=== PATIENT | male | born 1935 | race Caucasian/White ===

== ENCOUNTER 2016-03-21 08:00 | Outpatient (CLI) | payer MEDICARE, MEDICAID ==
[2016-03-21 08:32] LABS: Hemoglobin A1c 5.8 % (4.0-6.0)
[2016-03-21 09:33] LABS: ALT (SGPT) 14 U/L (0-55); AST (SGOT) 15 U/L (5-34); Albumin 4.2 g/dL (3.4-4.8); Alkaline Phosphatase 56 U/L (40-150); Anion Gap 19 mmol/L (10-20); BUN (Urea Nitrogen) 18 mg/dL (8.4-25.7); Bilirubin, Total 0.3 mg/dL (0.2-1.2); Calc. Creatinine Clearance 0 mL/min (70-130); Calcium 9.2 mg/dL (7.8-10.44); Carbon Dioxide 24 mmol/L (23-31); Chloride 99 mmol/L (98-107); Estimated GFR-MDRD 64; Glucose 125 mg/dL (83-110); Potassium 3.4 mmol/L (3.5-5.1); Protein, Total 7.2 g/dL (5.8-8.1); Sodium 139 mmol/L (136-145)
== END 2016-03-21 08:01 ==
LOC: MADLABBHPM 08:00
PROVIDERS: ATTEND Family Medicine
DX: E11.9 Type 2 diabetes mellitus without complications (principal)
CPT/HCPCS: 36415; 80053; 83036

== ENCOUNTER 2016-04-06 20:25 | Emergency (ER) | payer MEDICARE, MEDICAID ==
[~2016-04-06 20:25] MED LIST: Sodium Chloride 0.9% 500 ML BAG ONE
[2016-04-06 21:31] LABS: Bilirubin Negative (Negative); Blood, Urine Trace (Negative); Clarity Clear (Clear); Glucose, Urine (Dipstick) 250 mg/dL (Negative); Leukocyte Negative (Negative); Nitrite Negative (Negative); Protein, Urine (Dipstick) 30 mg/dL (Neg-Trace); Urobilinogen 0.2 mg/dL (0.2-1.0)
[2016-04-06 21:35] LABS: #Basophils 0.1 thou/uL (0.0-0.2); #Eosinphils 0.2 thou/uL (0.0-0.7); #Lymphocytes 1.7 thou/uL (1.20-3.40); #Monocytes 0.6 thou/uL (0.11-0.59); #Neutrophils 4.3 thou/uL (1.40-6.50); %Basophils 1.2 % (0.0-1.0); %Eosinophils 3.1 % (0.0-10.0); %Lymphocytes 24.7 % (21.0-51.0); %Monocytes 8.4 % (0.0-10.0); %Neutrophils 62.6 % (42.0-75.0); Bacteria/HPF Rare-Few HPF (None Seen); Hemoglobin 11.2 g/dL (14.0-18.0); Mean Corpuscular HGB CONC 31.4 g/dL (32.0-36.0); Mean Corpuscular Hemoglobin 23.4 pg (27.0-31.0); Mean Corpuscular Volume 74.4 fl (80.0-94.0); Mean Platelet Volume 6.1 fL (7.4-10.4); Platelet Count 367 thou/uL (130-400); RBC Distribution Width 18.2 % (11.5-14.5); Red Blood Cell (RBC) Count 4.79 mill/uL (4.70-6.10); WBC/HPF 0-3 HPF (0-3); White Blood Cell (WBC) Count 6.8 thou/uL (4.8-10.8)
[2016-04-06 21:36] LABS: Anisocytosis MARKED = >30 cells (100X) (0-5/hpf); Microcytosis MARKED = >30 cells (100X) (0-5/hpf)
[2016-04-06 21:43] LABS: ALT (SGPT) 14 U/L (0-55); AST (SGOT) 14 U/L (5-34); Albumin 4.2 g/dL (3.4-4.8); Alkaline Phosphatase 63 U/L (40-150); Anion Gap 20 mmol/L (10-20); BUN (Urea Nitrogen) 14 mg/dL (8.4-25.7); Bilirubin, Total 0.3 mg/dL (0.2-1.2); Calc. Creatinine Clearance 0 mL/min (70-130); Calcium 8.9 mg/dL (7.8-10.44); Carbon Dioxide 22 mmol/L (23-31); Chloride 100 mmol/L (98-107); Estimated GFR-MDRD 67; Globulin 3.4 g/dL (2.4-3.5); Glucose 232 mg/dL (83-110); Potassium 3.4 mmol/L (3.5-5.1); Protein, Total 7.6 g/dL (5.8-8.1); Sodium 139 mmol/L (136-145)
[2016-04-06] MEDS ORDERED: Potassium Chloride 20 MEQ TAB ONE (22:01)
--- NOTE | 2016-04-06 22:51 | ERRECORD ---
[facility] EMERGENCY RECORD HPI HYPERTENSION CHIEF COMPLAINT: Patient presents for evaluation of high blood pressure. (21:00 LHOD) HISTORIAN: History provided by patient, History provided by patient's family. (21:00 LHOD) TIME COURSE: 2 WEEKS AGO PT HAD BP IN 80'S SO WAS TAKEN OFF ALL BP MEDS AND TAKEN OFF INSULIN AND METFORMIN. FRIDAY PT SAW AND NOTED BP 140, SO ADVISED RECHECK IN APRIL. FAMILY REPORTS BP 240/100 TONIGHT SO THEY HAD HIM TAKE VALSARTAN 160 MG 30- 45 MINUTES AGO. PT REPORTS HIS GLUCOSE TODAY WAS 180. PT TOOK METFORMIN 3-4 DAYS AGO SINCE HE FELT HE SHOULD. NO HEADACHE, CHEST PAIN OR WEAKNESS. (21:00 LHOD) ASSOCIATED WITH: No associated abdominal pain, No associated chest pain, No associated diarrhea, No associated flank pain, No associated headache, No associated nausea, No associated neck pain, No associated palpitations, No associated tachycardia, Associated with visual changes, No associated vomiting, REPORTS VISION SEEMED BLURRY EARLIER. (22:37 LHOD) EXACERBATED BY: Patient's condition exacerbated by change in medication, Patient's condition exacerbated by PT HAS NOT BEEN ON DIABETIC DIET, TAKEN OFF BP MEDS, INSULIN AND METFORMIN. (22:38 LHOD) RELIEVED BY: Patient's condition relieved by VALSARTAN TAKEN TONIGHT, SEEMED TO HELP PT THOUGHT. (22:38 LHOD) RISK FACTORS: Coronary artery disease risk factors, include known coronary artery disease, include diabetes. (22:39 LHOD) ROS (21:05 LHOD) CONSTITUTIONAL: Historian denies fever. EYES: Historian reports vision changes, REPORTS VISION SEEMED BLURRY EARLIER. CARDIOVASCULAR: Historian denies chest pain, denies edema. RESPIRATORY: Historian denies cough, denies shortness of breath. GI: Historian denies abdominal pain, denies nausea, denies vomiting. FAMILY THINKS ABDOMEN SWELLING, BUT PT DENIES PAIN. GENITOURINARY MALE: Historian denies dysuria. MUSCULOSKELETAL: Historian denies back pain, denies neck pain. REPORTS LEFT HIP STRAIN. SKIN: Historian denies rash. NEUROLOGIC: Historian denies dizziness, denies focal weakness, denies headache. HEMO/LYMPHATIC: Historian denies easy bruising. NOTES: All systems reviewed, negative except as described above. PAST MEDICAL HISTORY MEDICAL HISTORY: Notes: STOMACH ULCERS, Flu vaccine up to date, Tetanus immunization up to date, Pneumococcal vaccine up to date, Past medical history includes history of diabetes, Type II, Past medical history includes history of hyperlipidemia, high cholesterol, Past medical history includes history of hypertension, &a-1R&a+25V*p+0X*[id number]*c202B*c15G*c2P*p-0X&a-25V&a+1R Name: Cesar Gonzalez : 1935 M80 MedRec: [id number] AcctNum: [id number] Prepared: Sat Apr 06, 2016 23:03 by Interface Page 1 of 4 pMD [facility] EMERGENCY RECORD which has been treated, Past medical history includes pulmonary disease, chronic obstructive pulmonary disease. (20:35 MDEB) MALE SURGICAL HISTORY: BACK SURGERY GLAND REMOVE ON LAST FRIDAY, Surgical history of appendectomy. (20:35 MDEB) PSYCHIATRIC HISTORY: Notes: NONE. (20:35 MDEB) SOCIAL HISTORY: Patient currently uses tobacco, Chews tobacco, Patient smokes 1 pack per day, Patient has smoked for 30 years, Patient denies alcohol use, Patient denies drug use. (20:35 MDEB) NOTES: Nursing records reviewed. (20:38 LHOD) KNOWN ALLERGIES cinnamon: Reaction: Anaphylaxis Cipro tablet ciprofloxacin (Unconfirmed): Reaction: Rash ciprofloxacin HCl (Unconfirmed) Levaquin NSAIDS (Non-Steroidal Anti-Inflammatory Drug): - PRESENCE OF STOMACH ULCERS RECENT Penicillins tetanus toxoid, adsorbed (Unconfirmed): Reaction: SWELLING Tetanus Vaccines & Toxoid CURRENT MEDICATIONS (21:00 JDEA) valsartan-hydrochlorothiazide: TABLET : Strength - 160 mg-25 mg : ORAL Patient Dose: 1 tab(s) Oral once a day. VITAL SIGNS VITAL SIGNS: BP: 212/81, Pulse: 77, Resp: 20, Temp: 97.7 (Tympanic), Pain: 0, O2 sat: 100, Time: 04/06/2016 20:33. (20:33 MDEB) BP: 169/69, Pulse: 69, Resp: 20, Pain: 0, O2 sat: 99 on RA, Time: 04/06/2016 22:40. (22:40 MDEB) BP: 188/74, Pulse: 82, Resp: 18, O2 sat: 98 on Room Air, Time: 04/06/2016 20:45. (20:45 MDEB) BP: 179/81, Pulse: 81, Resp: 18, Pain: 0, O2 sat: 98, Time: 04/06/2016 21:15. (21:15 MDEB) BP: 177/64, Pulse: 76, Resp: 18, O2 sat: 98 on Room Air, Time: 04/06/2016 21:45. (21:45 MDEB) PHYSICAL EXAM (21:11 LHOD) CONSTITUTIONAL: Vital signs reviewed, Patient afebrile, Pulse normal, Blood pressure, hypertensive, Respiratory rate normal, Patient appears non toxic, Patient appears pain free, Patient alert and oriented to person, place and time. EYES: Pupils equally round and reactive to light, Extraocular muscles intact. ENT: Mouth exam included findings of, mucous membranes dry. &a-1R&a+25V*p+0X*[id number]*c202B*c15G*c2P*p-0X&a-25V&a+1R Name: Cesar Gonzalez : 1935 M80 MedRec: [id number] AcctNum: [id number] Prepared: Sat Apr 06, 2016 23:03 by Interface Page 2 of 4 pMD [facility] EMERGENCY RECORD NECK: Neck exam included findings of normal range of motion, Trachea midline. RESPIRATORY CHEST: Respiratory exam included findings of no respiratory distress, Breath sounds clear. CARDIOVASCULAR: Cardiovascular exam included findings of heart rate regular rate and rhythm, Heart sounds with, systolic murmur present, grade 2/6. ABDOMEN MALE: Abdominal exam included findings of abdomen nontender. BACK: Back exam normal. UPPER EXTREMITY: Upper extremity exam normal. LOWER EXTREMITY: Lower extremity exam normal. NEURO: Neuro exam findings include patient oriented to person, place and time, Speech normal, Memory normal, Cranial nerves intact, no focal motor deficits, no focal sensory deficits. SKIN: no rash. EKG INTERPRETATION (21:23 LHOD) 12 LEAD EKG INTERPRETATION: 12 lead EKG interpreted by Emergency Department Physician at time of study, 12 lead EKG shows normal sinus rhythm, Rate (beats per minute): 78, with no ectopics, T waves, flattened, Leads affected: I, Leads affected: aVl, [place] normal. MEDICATION ADMINISTRATION SUMMARY Drug Name: *Normal Saline, Dose Ordered: 500 mL, Route: IV Fluid Infusion, Status: Given, Time: 22:05 04/06/2016, Drug Name: potassium chloride oral, Dose Ordered: 20 mEq, Route: Oral, Status: Given, Time: 22:02 04/06/2016, Drug Name: Normal Saline, Dose Ordered: 150 mL/hr, Route: IV Fluid Infusion, Status: Given, Time: 21:10 04/06/2016, *Additional information available in notes, Detailed record available in Medication Service section. DOCTOR NOTES (:23 LHOD) TEXT: 2122--179/2142--177/64 FAMILY REPORTS PT IS SCHEDULED FOR CARDIAC NUCLEAR STRESS TEST ON FRIDAY. PT NOT GIVEN INSULIN SINCE POTASSIUM LOW. ADVISED TO RESTART DIABETIC DIET AT THE VERY LEAST. PROBLEM LIST No recorded problems DIAGNOSIS (:58 LHOD) FINAL: PRIMARY: HYPERTENSION---UNCONTROLLED, ADDITIONAL: HYPERGLYCEMIA---UNCONTROLLED DM, Hypokalemia. PRESCRIPTION (:58 LHOD) &a-1R&a+25V*p+0X*[id number]*c202B*c15G*c2P*p-0X&a-25V&a+1R Name: Cesar Gonzalez : 1935 M80 MedRec: [id number] AcctNum: [id number] Prepared: Sat Apr 06, 2016 23:03 by Interface Page 3 of 4 pMD [facility] EMERGENCY RECORD [place]: TABLET, EXT RELEASE, PARTICLES/CRYSTALS : 20 mEq : ORAL : Quantity: 1 Unit: tab(s) Route: ORAL Schedule: once a day (in the morning) Dispense: 10 May substitute. Refills: No Refills . NOTES: No Refills. DISPOSITION PATIENT: Disposition Type: Discharge, Disposition: *Discharge Home, Condition: Good. (:58 LHOD) Patient left the department. (22:57 MDEB) [place]: JEANA=KEVIN Erazo, Faye LHOD=MD Seema, Kelly MDEB=KEVIN Rogers, Naila &a-1R&a+25V*p+0X*[id number]*c202B*c15G*c2P*p-0X&a-25V&a+1R Name: Cesar Gonzalez : 1935 M80 MedRec: [id number] AcctNum: [id number] Prepared: Jose Alejandro Apr 06, 2016 23:03 by Interface Page 4 of 4 pMD MTDD
--- NOTE | 2016-04-06 22:51 | PICIS ---
[facility] EMERGENCY RECORD TRIAGE (20:35 MDEB) PATIENT: NAME: Ceasr Gonzalez, AGE: 80, GENDER: male, : Fri1935, TIME OF GREET: Sat Apr 06, 2016 20:26, PREFERRED LANGUAGE: Ukrainian, RACE: WHITE, ETHNICITY: Not or , FALL RISK: NO, ECODE BILLING MAP: [facility], SSN: [id number], Zip Code: [facility], KG WEIGHT: 91.17, PHONE: , , , PERSON ID: [id number], PCP: MD DOUG, RANJANA. (20:35 MDEB) TRIAGE NOTES: ELEVATED BP. (20:35 MDEB) COMPLAINT: HIGH BLOOD PRESSURE. (20:35 MDEB) ADMISSION: URGENCY: 3 Urgent, ADMISSION SOURCE: Home, TRANSPORT: Walk-in, BED: TRIAGE. (20:35 MDEB) ASSESSMENT: Assessment: ELEVATED BP - TOOK VALSARTAN 160/25 AT 2009. (20:35 MDEB) PAIN: Notes: NO PAIN AT THIS TIME. (20:35 MDEB) TRIAGE SCREENING: Patient denies suicidal ideation, Patient denies presence of domestic violence. (20:35 MDEB) PROVIDERS: TRIAGE NURSE: Naila Rogers RN. (20:35 MDEB) VITAL SIGNS: BP 212/81, Pulse 77, Resp 20, Temp 97.7, (Tympanic), Pain 0, O2 Sat 100, Time 04/06/2016 20:33. (20:33 MDEB) PREVIOUS VISIT ALLERGIES: cinnamon, Cipro tablet, Levaquin, NSAIDS (Non-Steroidal Anti-Inflammatory Drug), Penicillins, Tetanus Vaccines . (20:35 MDEB) KNOWN ALLERGIES cinnamon: Reaction: Anaphylaxis Cipro tablet ciprofloxacin (Unconfirmed): Reaction: Rash ciprofloxacin HCl (Unconfirmed) Levaquin NSAIDS (Non-Steroidal Anti-Inflammatory Drug): - PRESENCE OF STOMACH ULCERS RECENT Penicillins tetanus toxoid, adsorbed (Unconfirmed): Reaction: SWELLING Tetanus Vaccines & Toxoid CURRENT MEDICATIONS (21:00 JDEA) valsartan-hydrochlorothiazide: TABLET : Strength - 160 mg-25 mg : ORAL Patient Dose: 1 tab(s) Oral once a day. VITAL SIGNS VITAL SIGNS: BP: 212/81, Pulse: 77, Resp: 20, Temp: 97.7 (Tympanic), Pain: 0, O2 sat: 100, Time: 04/06/2016 20:33. (20:33 MDEB) BP: 169/69, Pulse: 69, Resp: 20, Pain: 0, O2 sat: 99 on RA, Time: 04/06/2016 22:40. (22:40 MDEB) BP: 188/74, Pulse: 82, Resp: 18, O2 sat: 98 on Room Air, Time: 04/06/2016 20:45. (20:45 MDEB) BP: 179/81, Pulse: 81, Resp: 18, Pain: 0, O2 sat: 98, Time: 04/06/2016 21:15. (21:15 MDEB) &a-1R&a+25V*p+0X*e2585Q*c202B*c15G*c2P*p-0X&a-25V&a+1R Name: Cesar Gonzalez : 1935 M80 MedRec: [id number] AcctNum: [id number] Prepared: Sat Apr 06, 2016 23:09 by Interface Page 1 of 11 pMD [facility] EMERGENCY RECORD BP: 177/64, Pulse: 76, Resp: 18, O2 sat: 98 on Room Air, Time: 04/06/2016 21:45. (21:45 MDEB) NURSING ASSESSMENT: CARDIOVASCULAR (20:35 MDEB) CONSTITUTIONAL: Patient arrives ambulatory, Gait steady, History obtained from patient, Patient appears comfortable, Patient cooperative, Patient alert, Oriented to person, place and time, Skin warm, Skin dry, Skin normal in color, Mucous membranes pink, Mucous membranes moist, Patient is well-groomed, Patient complains of ELEVATED BP, SLIGHT BLURRED VISION THAT HAS CLEARED NOW. ALL MEDICATIONS STOPPED BY PCP 2 WKS AGO. PAIN: Patient rates pain as 0 out of 10. CARDIOVASCULAR: Cardiovascular assessment findings include heart rate normal. RESPIRATORY/CHEST: Respiratory assessment findings include respiratory effort easy, Respirations regular, Conversing normally, Neck and chest exam findings include trachea midline, Chest expansion equal, Chest movement symmetrical. NOTES: Emotional support needed and given, Patient tolerated procedure well. NURSING PROCEDURE: DISCHARGE NOTE (22:40 MDELIZ) DISCHARGE: Patient discharged to home, ambulating without assistance, family driving, accompanied by other family member, Summary of Care printed/ provided, Patient requested and was provided an electronic copy of Discharge Instructions, Transition record given to patient, Discharge instructions given to patient, Discharge instructions given to DAUGHTER, Simple or moderate discharge teaching performed, MONITORING BP & BG, Prescriptions given and instructions on side effects given, Above person(s) verbalized understanding of discharge instructions and follow-up care, Patient treated and evaluated by physician. BELONGINGS: Belongings remain with patient, Valuables remain with patient. NOTES: Emotional support needed and given, Patient tolerated procedure well. SAFETY: Side rails up, Cart/Stretcher in lowest position, Family at bedside, Call light within reach, Hospital ID band on. VITAL SIGNS: BP: 169, / 69, Pulse: 69, Resp: 20, Pain: 0, O2 sat: 99, on: RA. NURSING PROCEDURE: EKG CHART (21:00 AGAN) PATIENT IDENTIFIER: Patient actively involved in identification process, Patient's identity verified by patient stating name, Patient's identity verified by patient stating date, Patient's identity verified by hospital ID bracelet. EKG: EKG indicated for High BP, 12 lead EKG performed on the left chest. FOLLOW-UP: After procedure, EKG for interpretation given to Dr. Stephenson. &a-1R&a+25V*p+0X*x5724C*c202B*c15G*c2P*p-0X&a-25V&a+1R Name: Cesar Gonzalez : 1935 M80 MedRec: [id number] AcctNum: [id number] Prepared: Sat Apr 06, 2016 23:09 by Interface Page 2 of 11 D [facility] EMERGENCY RECORD NOTES: Patient tolerated procedure well. NURSING PROCEDURE: IV PATIENT IDENITIFIER: Patient actively involved in identification process, Patient's identity verified by patient stating name, Patient's identity verified by hospital ID bracelet. (20:40 MDELIZ) Patient actively involved in identification process, Patient's identity verified by patient stating name, Patient's identity verified by hospital ID bracelet. (22:40 MDEB) IV SITE 1: IV therapy indicated for hydration, IV therapy indicated for medication administration, IV established, to the right antecubital, using an 18 gauge catheter, in one attempt, IV site prepped with ALCOHOL, Saline lock established, Flushed with normal saline (mls): 10, Labs drawn at time of placement, labeled in the presence of the patient and sent to lab. (20:40 MDEB) FOLLOW-UP SITE 1: After procedure, sterile transparent dressing applied. (20:40 MDEB) IV discontinued, due to patient being discharged, catheter intact. (22:40 MDEB) NOTES: Emotional support needed and given, Patient tolerated procedure well. (20:40 MDEB) Emotional support needed and given, Patient tolerated procedure well. (22:40 MDEB) SAFETY: Side rails up, Cart/Stretcher in lowest position, Family at bedside, Call light within reach, Hospital ID band on. (20:40 MDEB) ORDER DETAILS Order Name: Accucheck, Status: Done, Time: 21:08 04/06/2016, User: ZAC, - Ordered for: MD Stephenson Lefayne, - Entered by: MD Stephenson Lefayne - Sat Apr 06, 2016 20:47, - Quantity: 1, Order Name: [facility], Status: Done, Time: 21:08 04/06/2016, User: ZAC, - Ordered for: MD Stephenson Lefayne, - Entered by: MD Stephenson Lefayne - Sat Apr 06, 2016 20:46, - Quantity: 1, Order Name: CBC with Differential, Status: Active, Time: 20:46 04/06/2016, User: BONITA, - Ordered for: MD Stephenson Lefayne, - Entered by: MD Stephenson Lefayne - Sat Apr 06, 2016 20:46, - Quantity: 1, Order Name: Comprehensive Metabolic Panel, Status: Active, Time: 20:46 04/06/2016, User: BONITA, - Ordered for: MD Stephenson Lefayne, - Entered by: MD Stephenson Lefayne - Sat Apr 06, 2016 20:46, - Quantity: 1, Order Name: EKG 12 Lead in Emergency Room, Status: Active, Time: &a-1R&a+25V*p+0X*e3706X*c202B*c15G*c2P*p-0X&a-25V&a+1R Name: Cesar Gonzalez : 1935 M80 MedRec: [id number] AcctNum: [id number] Prepared: Sat Apr 06, 2016 23:09 by Interface Page 3 of 11 pMD [facility] EMERGENCY RECORD 20:46 04/06/2016, User: BONITA, - Ordered for: MD Stephenson Lefayne, - Entered by: MD Stephenson Lefayne - Jose Alejandro Apr 06, 2016 20:46, - Quantity: 1, Order Name: SALINE LOCK, Status: Done, Time: 21:08 04/06/2016, User: ZAC, - Ordered for: MD Stephenson Lefayne, - Entered by: MD Stephenson Lefayne - Jose Alejandro Apr 06, 2016 20:46, - Quantity: 1, Order Name: Urinalysis w/ Rflx Microscopic, Status: Active, Time: 20:47 04/06/2016, User: BONITA, - Ordered for: MD Stephenson Lefayne, - Entered by: MD Stephenson Lefayne - Jose Alejandro Apr 06, 2016 20:47, - Quantity: 1. MEDICATION ADMINISTRATION SUMMARY Drug Name: *Normal Saline, Dose Ordered: 500 mL, Route: IV Fluid Infusion, Status: Given, Time: 22:05 04/06/2016, Drug Name: potassium chloride oral, Dose Ordered: 20 mEq, Route: Oral, Status: Given, Time: 22:02 04/06/2016, Drug Name: Normal Saline, Dose Ordered: 150 mL/hr, Route: IV Fluid Infusion, Status: Given, Time: 21:10 04/06/2016, *Additional information available in notes, Detailed record available in Medication Service section. MEDICATION SERVICE Normal Saline: Order: Normal Saline (0.9 % sodium chloride) - Dose: 150 mL/hr : IV Fluid Infusion Ordered by: Kelly Stephenson MD Entered by: Kelly Stephenson MD Sat Apr 06, 2016 21:08 Documented as given by: Naila Rogers RN Sat Apr 06, 2016 21:10 Patient, Medication, Dose, Route and Time verified prior to administration. Amount given: 150 ML/HR, IV SITE #1 IV fluids established for hydration, IV SITE #1 1st bag hung, IV SITE #1 Rate of infusion (non-bolus) Infusing at 150 ml/hr, via primary tubing, IV SITE #1 on IV pump, Catheter placement confirmed via flush prior to administration, IV site without signs or symptoms of infiltration during medication administration, No swelling during administration, No drainage during administration, IV flushed after administration, Correct patient, time, route, dose and medication confirmed prior to administration, Patient advised of actions and side-effects prior to administration, Allergies confirmed and medications reviewed prior to administration, Patient in position of comfort, Side rails up, Cart in lowest position, Family at bedside. Normal Saline: Order: Normal Saline (0.9 % sodium chloride) - Dose: 500 mL : IV Fluid Infusion Notes: BOLUS, THEN D/C IV Ordered by: Kelly Stephenson MD &a-1R&a+25V*p+0X*b5415U*c202B*c15G*c2P*p-0X&a-25V&a+1R Name: Cesar Gonzalez : 1935 M80 MedRec: [id number] AcctNum: [id number] Prepared: Sat Apr 06, 2016 23:09 by Interface Page 4 of 11 pMD [facility] EMERGENCY RECORD Entered by: Kelly Stephenson MD Sat Apr 06, 2016 21:57 , Acknowledged by: Naila Rogers RN Sat Apr 06, 2016 22:00 Documented as given by: Naila Rogers RN Sat Apr 06, 2016 22:05 Patient, Medication, Dose, Route and Time verified prior to administration. Amount given: 500 ML, IV SITE #1 IV fluids established for hydration, IV SITE #1 into right antecubital, IV SITE #1 1st bag hung, IV SITE #1 bolus of 500 ml established, IV SITE #1 Rate of bolus, 1000 ml/hr, via primary tubing, IV SITE #1 on IV pump, Catheter placement confirmed via flush prior to administration, IV site without signs or symptoms of infiltration during medication administration, No swelling during administration, No drainage during administration, IV flushed after administration, Correct patient, time, route, dose and medication confirmed prior to administration, Patient advised of actions and side-effects prior to administration, Allergies confirmed and medications reviewed prior to administration, Patient in position of comfort, Side rails up, Cart in lowest position, Family at bedside. potassium chloride oral: Order: potassium chloride oral (potassium chloride) - Dose: 20 mEq : Oral Ordered by: Kelly Stephenson MD Entered by: Kelly Stephenson MD Sat Apr 06, 2016 21:56 , Acknowledged by: Naila Rogers RN Sat Apr 06, 2016 22:00 Documented as given by: Naila Rogers RN Sat Apr 06, 2016 22:02 Patient, Medication, Dose, Route and Time verified prior to administration. Amount given: 20 MEQ, Site: Medication administered P.O., Correct patient, time, route, dose and medication confirmed prior to administration, Patient advised of actions and side-effects prior to administration, Allergies confirmed and medications reviewed prior to administration, Patient in position of comfort, Side rails up, Cart in lowest position, Family at bedside. HPI HYPERTENSION CHIEF COMPLAINT: Patient presents for evaluation of high blood pressure. (21:00 LHOD) HISTORIAN: History provided by patient, History provided by patient's family. (21:00 LHOD) TIME COURSE: 2 WEEKS AGO PT HAD BP IN 80'S SO WAS TAKEN OFF ALL BP MEDS AND TAKEN OFF INSULIN AND METFORMIN. FRIDAY PT SAW AND NOTED BP 140, SO ADVISED RECHECK IN APRIL. FAMILY REPORTS BP 240/100 TONIGHT SO THEY HAD HIM TAKE VALSARTAN 160 MG 30- 45 MINUTES AGO. PT REPORTS HIS GLUCOSE TODAY WAS 180. PT TOOK METFORMIN 3-4 DAYS AGO SINCE HE FELT HE SHOULD. NO HEADACHE, CHEST PAIN OR WEAKNESS. (21:00 LHOD) ASSOCIATED WITH: No associated abdominal pain, No associated chest pain, No associated diarrhea, No associated flank pain, No associated headache, No associated nausea, No associated neck pain, No associated palpitations, No associated tachycardia, Associated with visual changes, No associated vomiting, REPORTS VISION SEEMED BLURRY EARLIER. (22:37 LHOD) EXACERBATED BY: &a-1R&a+25V*p+0X*s3380G*c202B*c15G*c2P*p-0X&a-25V&a+1R Name: Cesar Gonzalez : 1935 M80 MedRec: [id number] AcctNum: [id number] Prepared: Sat Apr 06, 2016 23:09 by Interface Page 5 of 11 pMD [facility] EMERGENCY RECORD Patient's condition exacerbated by change in medication, Patient's condition exacerbated by PT HAS NOT BEEN ON DIABETIC DIET, TAKEN OFF BP MEDS, INSULIN AND METFORMIN. (22:38 LHOD) RELIEVED BY: Patient's condition relieved by VALSARTAN TAKEN TONIGHT, SEEMED TO HELP PT THOUGHT. (22:38 LHOD) RISK FACTORS: Coronary artery disease risk factors, include known coronary artery disease, include diabetes. (22:39 LHOD) ROS (21:05 LHOD) CONSTITUTIONAL: Historian denies fever. EYES: Historian reports vision changes, REPORTS VISION SEEMED BLURRY EARLIER. CARDIOVASCULAR: Historian denies chest pain, denies edema. RESPIRATORY: Historian denies cough, denies shortness of breath. GI: Historian denies abdominal pain, denies nausea, denies vomiting. FAMILY THINKS ABDOMEN SWELLING, BUT PT DENIES PAIN. GENITOURINARY MALE: Historian denies dysuria. MUSCULOSKELETAL: Historian denies back pain, denies neck pain. REPORTS LEFT HIP STRAIN. SKIN: Historian denies rash. NEUROLOGIC: Historian denies dizziness, denies focal weakness, denies headache. HEMO/LYMPHATIC: Historian denies easy bruising. NOTES: All systems reviewed, negative except as described above. PAST MEDICAL HISTORY MEDICAL HISTORY: Notes: STOMACH ULCERS, Flu vaccine up to date, Tetanus immunization up to date, Pneumococcal vaccine up to date, Past medical history includes history of diabetes, Type II, Past medical history includes history of hyperlipidemia, high cholesterol, Past medical history includes history of hypertension, which has been treated, Past medical history includes pulmonary disease, chronic obstructive pulmonary disease. (20:35 MDEB) MALE SURGICAL HISTORY: BACK SURGERY GLAND REMOVE ON LAST FRIDAY, Surgical history of appendectomy. (20:35 MDEB) PSYCHIATRIC HISTORY: Notes: NONE. (20:35 MDEB) SOCIAL HISTORY: Patient currently uses tobacco, Chews tobacco, Patient smokes 1 pack per day, Patient has smoked for 30 years, Patient denies alcohol use, Patient denies drug use. (20:35 MDEB) NOTES: Nursing records reviewed. (20:38 LHOD) PHYSICAL EXAM (21:11 LHOD) CONSTITUTIONAL: Vital signs reviewed, Patient afebrile, Pulse normal, Blood pressure, hypertensive, Respiratory rate normal, Patient appears non toxic, Patient appears pain free, Patient alert and oriented to person, place and time. &a-1R&a+25V*p+0X*u9201E*c202B*c15G*c2P*p-0X&a-25V&a+1R Name: Cesar Gonzalez : 1935 M80 MedRec: [id number] AcctNum: [id number] Prepared: Sat Apr 06, 2016 23:09 by Interface Page 6 of 11 pMD [facility] EMERGENCY RECORD EYES: Pupils equally round and reactive to light, Extraocular muscles intact. ENT: Mouth exam included findings of, mucous membranes dry. NECK: Neck exam included findings of normal range of motion, Trachea midline. RESPIRATORY CHEST: Respiratory exam included findings of no respiratory distress, Breath sounds clear. CARDIOVASCULAR: Cardiovascular exam included findings of heart rate regular rate and rhythm, Heart sounds with, systolic murmur present, grade 2/6. ABDOMEN MALE: Abdominal exam included findings of abdomen nontender. BACK: Back exam normal. UPPER EXTREMITY: Upper extremity exam normal. LOWER EXTREMITY: Lower extremity exam normal. NEURO: Neuro exam findings include patient oriented to person, place and time, Speech normal, Memory normal, Cranial nerves intact, no focal motor deficits, no focal sensory deficits. SKIN: no rash. LAB INTERPRETATION (21:40 LHOD) INTERPRETATION: I reviewed the lab results, CBC abnormal, Hemoglobin decreased, Hematocrit decreased, Chemistry abnormal, Potassium decreased, Glucose elevated, Urinalysis abnormal, positive for glucose. EVENTS TRANSFER: Triage to Emergency Triage. (Sat Apr 06, 2016 20:35 MDEB) Emergency Triage to Main ED -03. (20:36 MDEB) Removed from Emergency Main ED -03. (22:57 MDEB) EKG INTERPRETATION (21:23 LHOD) 12 LEAD EKG INTERPRETATION: 12 lead EKG interpreted by Emergency Department Physician at time of study, 12 lead EKG shows normal sinus rhythm, Rate (beats per minute): 78, with no ectopics, T waves, flattened, Leads affected: I, Leads affected: aVl, [place] normal. DOCTOR NOTES (21:23 LHOD) TEXT: 2122--179/67 2142--177/64 FAMILY REPORTS PT IS SCHEDULED FOR CARDIAC NUCLEAR STRESS TEST ON FRIDAY. PT NOT GIVEN INSULIN SINCE POTASSIUM LOW. ADVISED TO RESTART DIABETIC DIET AT THE VERY LEAST. PROBLEM LIST No recorded problems &a-1R&a+25V*p+0X*v4254K*c202B*c15G*c2P*p-0X&a-25V&a+1R Name: Cesar Gonzalez : 1935 M80 MedRec: [id number] AcctNum: [id number] Prepared: Sat Apr 06, 2016 23:09 by Interface Page 7 of 11 pMD [facility] EMERGENCY RECORD DIAGNOSIS (21:58 LHOD) FINAL: PRIMARY: HYPERTENSION---UNCONTROLLED, ADDITIONAL: HYPERGLYCEMIA---UNCONTROLLED DM, Hypokalemia. DISPOSITION PATIENT: Disposition Type: Discharge, Disposition: *Discharge Home, Condition: Good. (21:58 LHOD) Patient left the department. (22:57 MDEB) INSTRUCTION (21:59 LHOD) DISCHARGE: HYPERTENSION, ESTABLISHED, OUT OF CONTROL, DIABETIC DIET, HYPOKALEMIA. FOLLOWUP: MD DOUG, [facility], [facility], [address] [place] [id number], [phone], Follow up with Primary Care Physician in 2-3 days. SPECIAL: Follow-up with your PCP *RETURN IF WORSE CONTINUE VALSARTAN 1 EACH DAY FOR NOW. PRESCRIPTION (21:58 LHOD) K-Dur: TABLET, EXT RELEASE, PARTICLES/CRYSTALS : 20 mEq : ORAL : Quantity: 1 Unit: tab(s) Route: ORAL Schedule: once a day (in the morning) Dispense: 10 May substitute. Refills: No Refills . NOTES: No Refills. IMAGING EKG: Image captured from scanner. (22:42 AGAN) DIS: Image captured from scanner. (22:45 MDEB) *SUPPLY CHARGE SHEET: Image captured from scanner. (22:46 MDEB) ADMIN (22:41 LHOD) DIGITAL SIGNATURE: MD Seema, Kelly. RESULTS LABORATORY: Accuc[place]k Collection DT: Sat Apr 06, 2016 21:13, *Accuc[place]k 212 - H mg/dL, Range (70-110). (21:21 LHOD) Urine Microscopic Collection DT: Sat Apr 06, 2016 21:18, RBC/HPF 4-6 HPF, Range (0-3), WBC/HPF 0-3 HPF, Range (0-3), *Squamous Epithelial 4-6 - H HPF, Range (0-3), Bacteria/HPF Rare-Few HPF, Range (None Seen). (21:40 LHOD) Urinalysis w/ Rflx Microscopic Collection DT: [facility] Apr 06, 2016 21:18, Color Yellow , Range (Yellow), Clarity Clear , Range (Clear), Specific [place], Urine 1.020 , Range (1.005-1.030), pH, Urine 7.0 , Range (5.0-9.0), Leukocyte Negative , Range (Negative), Nitrite Negative , Range (Negative), &a-1R&a+25V*p+0X*n8090T*c202B*c15G*c2P*p-0X&a-25V&a+1R Name: Cesar Gonzalez : 1935 M80 MedRec: [id number] AcctNum: [id number] Prepared: [facility] Apr 06, 2016 23:09 by Interface Page 8 of 11 pMD [facility] EMERGENCY RECORD *Protein, Urine (Dipstick) 30 - H mg/dL, Range (Neg-Trace), *Glucose, Urine (Dipstick) 250 - H mg/dL, Range (Negative), Ketone, Urine Negative mg/dL, Range (Negative), Urobilinogen 0.2 mg/dL, Range (0.2-1.0), Bilirubin Negative , Range (Negative), *Blood, Urine Trace - H , Range (Negative). (21:40 LHOD) CBC with Differential Collection DT: [facility] Apr 06, 2016 21:18, White Blood Cell (WBC) Count 6.8 thou/uL, Range (4.8-10.8), Red Blood Cell (RBC) Count 4.79 mill/uL, Range (4.70-6.10), *Hemoglobin 11.2 - L g/dL, Range (14.0-18.0), *Hematocrit 35.6 - L %, Range (42.0-52.0), *Mean Corpuscular Volume 74.4 - L fl, Range (80.0-94.0), *Mean Corpuscular Hemoglobin 23.4 - L pg, Range (27.0-31.0), *Mean Corpuscular HGB CONC 31.4 - L g/dL, Range (32.0-36.0), *RBC Distribution Width 18.2 - H %, Range (11.5-14.5), Platelet Count 367 thou/uL, Range (130-400), *Mean Platelet Volume 6.1 - L fL, Range (7.4-10.4), %Neutrophils 62.6 %, Range (42.0-75.0), %Lymphocytes 24.7 %, Range (21.0-51.0), %Monocytes 8.4 %, Range (0.0-10.0), %Eosinophils 3.1 %, Range (0.0-10.0), *%Basophils 1.2 - H %, Range (0.0-1.0), #Neutrophils 4.3 thou/uL, Range (1.40-6.50), #Lymphocytes 1.7 thou/uL, Range (1.20-3.40), *#Monocytes 0.6 - H thou/uL, Range (0.11-0.59), #Eosinphils 0.2 thou/uL, Range (0.0-0.7), #Basophils 0.1 thou/uL, Range (0.0-0.2), Anisocytosis MARKED = >30 cells (100X), Range (0-5/hpf), Microcytosis MARKED = >30 cells (100X), Range (0-5/hpf). (21:40 LHOD) Urine Microscopic Collection DT: Sat Apr 06, 2016 21:18, RBC/HPF 4-6 HPF, Range (0-3), WBC/HPF 0-3 HPF, Range (0-3), *Squamous Epithelial 4-6 - H HPF, Range (0-3), Bacteria/HPF Rare-Few HPF, Range (None Seen). (21:40 LHOD) Urinalysis w/ Rflx Microscopic Collection DT: Sat Apr 06, 2016 21:18, Color Yellow , Range (Yellow), Clarity Clear , Range (Clear), Specific [place], Urine 1.020 , Range (1.005-1.030), pH, Urine 7.0 , Range (5.0-9.0), Leukocyte Negative , Range (Negative), Nitrite Negative , Range (Negative), *Protein, Urine (Dipstick) 30 - H mg/dL, Range (Neg-Trace), *Glucose, Urine (Dipstick) 250 - H mg/dL, Range (Negative), Ketone, Urine Negative mg/dL, Range (Negative), Urobilinogen 0.2 mg/dL, Range (0.2-1.0), Bilirubin Negative , Range (Negative), &a-1R&a+25V*p+0X*r6802S*c202B*c15G*c2P*p-0X&a-25V&a+1R Name: Cesar Gonzalez : 1935 M80 MedRec: [id number] AcctNum: [id number] Prepared: Sat Apr 06, 2016 23:09 by Interface Page 9 of 11 pMD [facility] EMERGENCY RECORD *Blood, Urine Trace - H , Range (Negative). (21:40 LHOD) CBC with Differential Collection DT: Sat Apr 06, 2016 21:18, White Blood Cell (WBC) Count 6.8 thou/uL, Range (4.8-10.8), Red Blood Cell (RBC) Count 4.79 mill/uL, Range (4.70-6.10), *Hemoglobin 11.2 - L g/dL, Range (14.0-18.0), *Hematocrit 35.6 - L %, Range (42.0-52.0), *Mean Corpuscular Volume 74.4 - L fl, Range (80.0-94.0), *Mean Corpuscular Hemoglobin 23.4 - L pg, Range (27.0-31.0), *Mean Corpuscular HGB CONC 31.4 - L g/dL, Range (32.0-36.0), *RBC Distribution Width 18.2 - H %, Range (11.5-14.5), Platelet Count 367 thou/uL, Range (130-400), *Mean Platelet Volume 6.1 - L fL, Range (7.4-10.4), %Neutrophils 62.6 %, Range (42.0-75.0), %Lymphocytes 24.7 %, Range (21.0-51.0), %Monocytes 8.4 %, Range (0.0-10.0), %Eosinophils 3.1 %, Range (0.0-10.0), *%Basophils 1.2 - H %, Range (0.0-1.0), #Neutrophils 4.3 thou/uL, Range (1.40-6.50), #Lymphocytes 1.7 thou/uL, Range (1.20-3.40), *#Monocytes 0.6 - H thou/uL, Range (0.11-0.59), #Eosinphils 0.2 thou/uL, Range (0.0-0.7), #Basophils 0.1 thou/uL, Range (0.0-0.2), Anisocytosis MARKED = >30 cells (100X), Range (0-5/hpf), Microcytosis MARKED = >30 cells (100X), Range (0-5/hpf). (21:40 [facility]) Comprehensive Metabolic Panel Collection DT: Sat Apr 06, 2016 21:18, Sodium 139 mmol/L, Range (136-145), *Potassium 3.4 - L mmol/L, Range (3.5-5.1), Chloride 100 mmol/L, Range (98-107), *Carbon Dioxide 22 - L mmol/L, Range (23-31), Anion Gap 20 mmol/L, Range (10-20), BUN (Urea Nitrogen) 14 mg/dL, Range (8.4-25.7), Creatinine 1.07 mg/dL, Range (0.7-1.3), Estimated GFR-MDRD 67 , Reference Range for Estimated GFR: Greater than 90, mL/min/1.73 m2 NOTE: The MDRD equation has not been validated for use, with the elderly (over 70 years of age), women, patients with, serious comorbid condition or persons with extremes of body size, muscle, mass, or nutritional status. , *Glucose 232 - H mg/dL, Range (83-110), Calcium 8.9 mg/dL, Range (7.8-10.44), Bilirubin, Total 0.3 mg/dL, Range (0.2-1.2), Protein, Total 7.6 g/dL, Range (5.8-8.1), NOTE: Plasma values are generally 0.3 to 0.5 g/dL higher than serum values, due to the presence of fibrinogen. , Albumin 4.2 g/dL, Range (3.4-4.8), Globulin 3.4 g/dL, Range (2.4-3.5), &a-1R&a+25V*p+0X*m4387V*c202B*c15G*c2P*p-0X&a-25V&a+1R Name: Cesar Gonzalez : 1935 M80 MedRec: [id number] AcctNum: [id number] Prepared: Sat Apr 06, 2016 23:09 by Interface Page 10 of 11 pMD [facility] EMERGENCY RECORD Alb/Glob Ratio 1.2 g/dL, Range (1.2-2.2), Alkaline Phosphatase 63 U/L, Range (40-150), AST (SGOT) 14 U/L, Range (5-34), ALT (SGPT) 14 U/L, Range (0-55). (21:44 LHOD) [place]: ROSION=KEVIN Garcia, Stephen HILLS=KEVIN Erazo, Faye LHOD=MD Seema, Kelly EARL=KEVIN Rogers, Naila &a-1R&a+25V*p+0X*s1845F*c202B*c15G*c2P*p-0X&a-25V&a+1R Name: Cesar Gonzalez : 1935 M80 MedRec: [id number] AcctNum: [id number] Prepared: Sat Apr 06, 2016 23:09 by Interface Page 11 of 11 pMD MTDD
== END 2016-04-06 22:30 | disposition home or self-care (01) ==
LOC: MADERS 20:25
DX: I10 Essential (primary) hypertension (principal); E11.65 Type 2 diabetes mellitus with hyperglycemia; E87.6 Hypokalemia; E78.00 Pure hypercholesterolemia, unspecified; E78.5 Hyperlipidemia, unspecified; J44.9 Chronic obstructive pulmonary disease, unspecified; F17.220 Nicotine dependence, chewing tobacco, uncomplicated; Z79.899 Other long term (current) drug therapy
CPT/HCPCS: 36416; 80053; 81003; 81015; 85025; 93005; 96360; 36415-59; J7050

== ENCOUNTER 2016-04-07 23:07 | Emergency (ER) | payer MEDICARE, MEDICAID ==
--- NOTE | 2016-04-07 23:47 | ERRECORD ---
[facility] EMERGENCY RECORD HPI GENERAL (23:37 LLDO) CHIEF COMPLAINT: Patient presents for evaluation of pt discovered his bp was essentially normal (for him) and left, saying he would talk to pcp about his meds tomorrow. ROS (23:38 LLDO) CONSTITUTIONAL: pt not seen by me. no ros. NOTES: Systems not reviewed; unable. PAST MEDICAL HISTORY MEDICAL HISTORY: Notes: STOMACH ULCERS, Flu vaccine up to date, Tetanus immunization up to date, Pneumococcal vaccine up to date, Past medical history includes history of diabetes, Type II, Past medical history includes history of hyperlipidemia, high cholesterol, Past medical history includes history of hypertension, which has been treated, Past medical history includes pulmonary disease, chronic obstructive pulmonary disease. NO changes. (23:22 AGAN) MALE SURGICAL HISTORY: BACK SURGERY GLAND REMOVE ON LAST FRIDAY, Surgical history of appendectomy. no changes. (23:22 AGAN) PSYCHIATRIC HISTORY: Notes: NONE., none. (23:22 AGAN) SOCIAL HISTORY: Patient denies alcohol use, Patient denies drug use, Patient has no smoking history, Patient currently uses tobacco, Chews tobacco, Patient smokes 1 pack per day, Patient has smoked for 30 years, Patient denies alcohol use, Patient denies drug use. (23:22 AGAN) NOTES: Nursing records reviewed, Agree with nursing records, Medication list reviewed. (23:39 LLDO) KNOWN ALLERGIES cinnamon (Unconfirmed): Reaction: Anaphylaxis Cipro tablet ciprofloxacin (Unconfirmed): Reaction: Rash ciprofloxacin HCl (Unconfirmed) Levaquin NSAIDS (Non-Steroidal Anti-Inflammatory Drug): - PRESENCE OF STOMACH ULCERS RECENT Penicillins tetanus toxoid, adsorbed (Unconfirmed): Reaction: SWELLING Tetanus Vaccines & Toxoid CURRENT MEDICATIONS (23:19 AGAN) valsartan-hydrochlorothiazide: TABLET : Strength - 160 mg-25 mg : ORAL Patient Dose: 1 tab(s) Oral once a day. K-Dur: TABLET, EXT RELEASE, PARTICLES/CRYSTALS : Strength - 20 mEq : ORAL Patient Dose: 1 tab(s) Oral once a day (in the morning). &a-1R&a+25V*p+0X*d2125U*c202B*c15G*c2P*p-0X&a-25V&a+1R Name: Cesar Gonzalez : 1935 M80 MedRec: [id number] AcctNum: [id number] Prepared: Karli Apr 07, 2016 23:43 by Interface Page 1 of 2 pMD [facility] EMERGENCY RECORD VITAL SIGNS (23:16 AGAN) VITAL SIGNS: BP: 191/66, Pulse: 88, Resp: 18, Pain: 0, O2 sat: 100% on Room Air, Time: 04/07/2016 23:16. PHYSICAL EXAM (23:39 LLDO) CONSTITUTIONAL: no pe done. PROBLEM LIST No recorded problems DIAGNOSIS (23:36 AGAN) FINAL: PRIMARY: erLWBS. PRESCRIPTION No recorded prescriptions DISPOSITION PATIENT: Disposition Type: Eloped, Disposition: Left Without Being Seen, Disposition Transport: Ambulatory, Condition: Good. (23:36 AGAN) Patient left the department. (23:38 AGAN) [place]: AGAGeovany=KEVIN Garcia, Stephen LLDO=MD Emily, John &a-1R&a+25V*p+0X*s8696T*c202B*c15G*c2P*p-0X&a-25V&a+1R Name: Cesar Gonzalez : 1935 M80 MedRec: [id number] AcctNum: [id number] Prepared: Karli Apr 07, 2016 23:43 by Interface Page 2 of 2 pMD MTDD
--- NOTE | 2016-04-07 23:51 | PICIS ---
[facility] EMERGENCY RECORD TRIAGE (FriApr 07, 2016 23:18 AGAN) TRIAGE NOTES: MY BP IS HIH ON MY BLOOD PRESSURE MACHINE AT HOME. (FriApr 07, 2016 23:18 AGAN) PATIENT: NAME: Cesar Gonzalez, AGE: 80, GENDER: male, : Fri1935, TIME OF GREET: FriApr 07, 2016 23:07, PREFERRED LANGUAGE: Algerian, ETHNICITY: Not or , FALL RISK: NO, ECODE BILLING MAP: [facility], SSN: [id number], Zip Code: [address], KG WEIGHT: 89.81, PHONE: , , , PERSON ID: [id number], PCP: MD CAMACHO IMELDA. (FriApr 07, 2016 23:18 AGAN) COMPLAINT: HIGH BLOOD PRESSURE. (FriApr 07, 2016 23:18 AGAN) ADMISSION: URGENCY: 4 Non Urgent, ADMISSION SOURCE: Home, TRANSPORT: CAR, BED: ED -03. ([place] Apr 07, 2016 23:18 AGAN) ASSESSMENT: Assessment: [place]3 was seen here last night for the same concern. My BP is high at home, Symptoms began 2 hours ago. (23:22 AGAN) PAIN: No complaint of pain. (23:22 AGAN) PROVIDERS: TRIAGE NURSE: Stephen Garcia RN. ([place] Apr 07, 2016 23:18 AGAN) VITAL SIGNS: BP 191/66, Pulse 88, Resp 18, Pain 0, O2 Sat 100%, on Room Air, Time 04/07/2016 23:16. (23:16 AGAN) PREVIOUS VISIT ALLERGIES: cinnamon, Cipro tablet, Levaquin, NSAIDS (Non-Steroidal Anti-Inflammatory Drug), Penicillins, Tetanus Vaccines . ([place] Apr 07, 2016 23:18 AGAN) cinnamon, Cipro tablet, Levaquin, NSAIDS (Non-Steroidal Anti-Inflammatory Drug), Penicillins, Tetanus Vaccines . (23:22 AGAN) KNOWN ALLERGIES cinnamon (Unconfirmed): Reaction: Anaphylaxis Cipro tablet ciprofloxacin (Unconfirmed): Reaction: Rash ciprofloxacin HCl (Unconfirmed) Levaquin NSAIDS (Non-Steroidal Anti-Inflammatory Drug): - PRESENCE OF STOMACH ULCERS RECENT Penicillins tetanus toxoid, adsorbed (Unconfirmed): Reaction: SWELLING Tetanus Vaccines & Toxoid CURRENT MEDICATIONS (23:19 AGAN) valsartan-hydrochlorothiazide: TABLET : Strength - 160 mg-25 mg : ORAL Patient Dose: 1 tab(s) Oral once a day. K-Dur: TABLET, EXT RELEASE, PARTICLES/CRYSTALS : Strength - 20 mEq : ORAL Patient Dose: 1 tab(s) Oral once a day (in the morning). VITAL SIGNS (23:16 AGAN) VITAL SIGNS: BP: 191/66, Pulse: 88, Resp: 18, Pain: 0, O2 sat: 100% on Room Air, Time: 04/07/2016 23:16. &a-1R&a+25V*p+0X*i3270G*c202B*c15G*c2P*p-0X&a-25V&a+1R Name: Cesar Gonzalez : 1935 M80 MedRec: [id number] AcctNum: [id number] Prepared: Karli Apr 07, 2016 23:49 by Interface Page 1 of 3 pMD [facility] EMERGENCY RECORD HPI GENERAL (23:37 LLDO) CHIEF COMPLAINT: Patient presents for evaluation of pt discovered his bp was essentially normal (for him) and left, saying he would talk to pcp about his meds tomorrow. ROS (23:38 LLDO) CONSTITUTIONAL: pt not seen by me. no ros. NOTES: Systems not reviewed; unable. PAST MEDICAL HISTORY MEDICAL HISTORY: Notes: STOMACH ULCERS, Flu vaccine up to date, Tetanus immunization up to date, Pneumococcal vaccine up to date, Past medical history includes history of diabetes, Type II, Past medical history includes history of hyperlipidemia, high cholesterol, Past medical history includes history of hypertension, which has been treated, Past medical history includes pulmonary disease, chronic obstructive pulmonary disease. NO changes. (23:22 AGAN) MALE SURGICAL HISTORY: BACK SURGERY GLAND REMOVE ON LAST FRIDAY, Surgical history of appendectomy. no changes. (23:22 AGAN) PSYCHIATRIC HISTORY: Notes: NONE., none. (23:22 AGAN) SOCIAL HISTORY: Patient denies alcohol use, Patient denies drug use, Patient has no smoking history, Patient currently uses tobacco, Chews tobacco, Patient smokes 1 pack per day, Patient has smoked for 30 years, Patient denies alcohol use, Patient denies drug use. (23:22 AGAN) NOTES: Nursing records reviewed, Agree with nursing records, Medication list reviewed. (23:39 LLDO) PHYSICAL EXAM (23:39 LLDO) CONSTITUTIONAL: no pe done. EVENTS TRANSFER: Triage to Emergency Main ED -03. ([place]li Apr 07, 2016 23:18 AGAN) Emergency Main ED -03 to Waiting. (23:37 AGAN) Removed from Emergency Waiting. (23:38 AGAN) PROBLEM LIST No recorded problems DIAGNOSIS (23:36 AGAN) FINAL: PRIMARY: erLWBS. DISPOSITION PATIENT: Disposition Type: Eloped, Disposition: Left Without Being Seen, Disposition Transport: Ambulatory, Condition: Good. (23:36 AGAN) &a-1R&a+25V*p+0X*d6392G*c202B*c15G*c2P*p-0X&a-25V&a+1R Name: Cesar Gonzalez : 1935 M80 MedRec: [id number] AcctNum: [id number] Prepared: Karli Apr 07, 2016 23:49 by Interface Page 2 of 3 pMD [facility] EMERGENCY RECORD Patient left the department. (23:38 AGAN) PRESCRIPTION No recorded prescriptions ADMIN (23:40 LLDO) DIGITAL SIGNATURE: MD Diaz Lloyd. [place]: AGAN=KEVIN Garcia, Stephen LLDO=MD Diaz Lloyd &a-1R&a+25V*p+0X*s0960C*c202B*c15G*c2P*p-0X&a-25V&a+1R Name: Cesar Gonzalez : 1935 M80 MedRec: [id number] AcctNum: [id number] Prepared: Karli Apr 07, 2016 23:49 by Interface Page 3 of 3 pMD [facility]
== END 2016-04-07 23:32 | disposition left against medical advice (07) ==
LOC: MADERS 23:07
DX: Z53.21 Procedure and treatment not carried out due to patient leaving prior to being seen by health care provider (principal)

== ENCOUNTER 2016-04-15 08:56 | Outpatient (CLI) | payer MEDICARE, MEDICAID ==
[2016-04-15 09:37] LABS: Hemoglobin A1c 6.1 % (4.0-6.0)
[2016-04-15 09:48] LABS: ALT (SGPT) 15 U/L (0-55); AST (SGOT) 16 U/L (5-34); Albumin 4.2 g/dL (3.4-4.8); Alkaline Phosphatase 62 U/L (40-150); Anion Gap 17 mmol/L (10-20); BUN (Urea Nitrogen) 19 mg/dL (8.4-25.7); Bilirubin, Total Less than 0.3 mg/dL (0.2-1.2); Calc. Creatinine Clearance 0 mL/min (70-130); Calcium 9.4 mg/dL (7.8-10.44); Carbon Dioxide 27 mmol/L (23-31); Chloride 99 mmol/L (98-107); Estimated GFR-MDRD 58; Globulin 3.3 g/dL (2.4-3.5); Glucose 137 mg/dL (83-110); Potassium 3.7 mmol/L (3.5-5.1); Protein, Total 7.5 g/dL (5.8-8.1); Sodium 139 mmol/L (136-145)
[2016-04-15 10:38] LABS: #Basophils 0.1 thou/uL (0.0-0.2); #Eosinphils 0.3 thou/uL (0.0-0.7); #Monocytes 0.5 thou/uL (0.11-0.59); #Neutrophils 3.6 thou/uL (1.40-6.50); %Basophils 1.6 % (0.0-1.0); %Eosinophils 4.1 % (0.0-10.0); %Lymphocytes 30.1 % (21.0-51.0); %Monocytes 8.1 % (0.0-10.0); %Neutrophils 56.1 % (42.0-75.0); Anisocytosis SLIGHT = 6-15 cells (100X) (0-5/hpf); Elliptocytes SLIGHT = 2-5 cells (100X) (0-1/hpf); Hemoglobin 11.6 g/dL (14.0-18.0); Hypochromia SLIGHT = 6-15 cells (100X) (0-5/hpf); MDiff Complete? YES; Mean Corpuscular HGB CONC 32.2 g/dL (32.0-36.0); Mean Corpuscular Hemoglobin 23.8 pg (27.0-31.0); Mean Corpuscular Volume 73.8 fl (80.0-94.0); Mean Platelet Volume 6.3 fL (7.4-10.4); Microcytosis SLIGHT = 6-15 cells (100X) (0-5/hpf); Platelet Count 407 thou/uL (130-400); Poikilocytosis SLIGHT = 6-15 cells (100X) (0-5/hpf); RBC Distribution Width 17.4 % (11.5-14.5); Red Blood Cell (RBC) Count 4.87 mill/uL (4.70-6.10); Tear Drops SLIGHT = 2-5 cells (100X) (0-1/hpf); White Blood Cell (WBC) Count 6.5 thou/uL (4.8-10.8)
[2016-04-15 16:58] LABS: Iron 17 ug/dL (65-175)
== END 2016-04-15 08:57 ==
LOC: MADLABBHPM 08:56
PROVIDERS: ATTEND Family Medicine
DX: D64.9 Anemia, unspecified (principal); E11.9 Type 2 diabetes mellitus without complications
CPT/HCPCS: 36415; 80053; 82728; 83036; 83540; 85025

== ENCOUNTER 2016-07-11 08:30 | Outpatient (CLI) | payer MEDICARE, MEDICAID ==
[2016-07-11 09:00] LABS: Hemoglobin A1c 6.6 % (4.0-6.0)
[2016-07-11 09:05] LABS: ALT (SGPT) 15 U/L (8-55); AST (SGOT) 13 U/L (5-34); Albumin 4.2 g/dL (3.4-4.8); Alkaline Phosphatase 58 U/L (40-150); Anion Gap 17 mmol/L (10-20); BUN (Urea Nitrogen) 17 mg/dL (8.4-25.7); Bilirubin, Total 0.3 mg/dL (0.2-1.2); Calc. Creatinine Clearance 0 mL/min (70-130); Calcium 9.4 mg/dL (7.8-10.44); Carbon Dioxide 25 mmol/L (23-31); Chloride 101 mmol/L (98-107); Estimated GFR-MDRD 83; Globulin 3.2 g/dL (2.4-3.5); Glucose 124 mg/dL (83-110); Potassium 4.1 mmol/L (3.5-5.1); Protein, Total 7.4 g/dL (5.8-8.1); Sodium 139 mmol/L (136-145)
== END 2016-07-11 08:31 | disposition home or self-care (01) ==
LOC: MADLABBHPM 08:30
PROVIDERS: ATTEND Family Medicine
DX: E11.9 Type 2 diabetes mellitus without complications (principal)
CPT/HCPCS: 36415; 80053; 83036

== ENCOUNTER 2016-10-01 09:44 | Emergency (ER) | payer MEDICARE, MEDICAID ==
[2016-10-01] MEDS ORDERED: Pantoprazole 40 MG VIAL ONE (10:18)
[2016-10-01] MEDS ORDERED: Sodium Chloride 0.9% 1,000 ML BAG ONE (10:21)
[2016-10-01 10:31] LABS: #Basophils 0.1 thou/uL (0.0-0.2); #Eosinphils 0.4 thou/uL (0.0-0.7); #Lymphocytes 1.6 thou/uL (1.20-3.40); #Monocytes 0.6 thou/uL (0.11-0.59); #Neutrophils 6.6 thou/uL (1.40-6.50); %Basophils 0.6 % (0.0-1.0); %Eosinophils 4.4 % (0.0-10.0); %Lymphocytes 16.9 % (21.0-51.0); %Monocytes 6.8 % (0.0-10.0); %Neutrophils 71.4 % (42.0-75.0); Hemoglobin 10.5 g/dL (14.0-18.0); Mean Corpuscular HGB CONC 33.5 g/dL (32.0-36.0); Mean Corpuscular Hemoglobin 27.9 pg (27.0-31.0); Mean Corpuscular Volume 83.2 fl (80.0-94.0); Mean Platelet Volume 6.5 fL (7.4-10.4); Platelet Count 322 thou/uL (130-400); RBC Distribution Width 14.7 % (11.5-14.5); Red Blood Cell (RBC) Count 3.75 mill/uL (4.70-6.10); White Blood Cell (WBC) Count 9.2 thou/uL (4.8-10.8)
[2016-10-01 10:34] LABS: PTT 25.3 SEC (22.9-36.1); Prothrombin Time 13.5 SEC (12.0-14.7)
[2016-10-01 10:43] LABS: ALT (SGPT) 12 U/L (8-55); AST (SGOT) 11 U/L (5-34); Alkaline Phosphatase 65 U/L (40-150); Anion Gap 17 mmol/L (10-20); BUN (Urea Nitrogen) 17 mg/dL (8.4-25.7); Bilirubin, Total 0.4 mg/dL (0.2-1.2); Calc. Creatinine Clearance 0 mL/min (70-130); Calcium 9.5 mg/dL (7.8-10.44); Carbon Dioxide 25 mmol/L (23-31); Chloride 100 mmol/L (98-107); Estimated GFR-MDRD 65; Globulin 3.5 g/dL (2.4-3.5); Glucose 155 mg/dL (83-110); Potassium 3.9 mmol/L (3.5-5.1); Protein, Total 7.5 g/dL (5.8-8.1); Sodium 138 mmol/L (136-145)
[2016-10-01 13:36] LABS: #Basophils 0.1 thou/uL (0.0-0.2); #Eosinphils 0.4 thou/uL (0.0-0.7); #Lymphocytes 1.8 thou/uL (1.20-3.40); #Monocytes 0.6 thou/uL (0.11-0.59); #Neutrophils 5.1 thou/uL (1.40-6.50); %Basophils 0.7 % (0.0-1.0); %Eosinophils 5.1 % (0.0-10.0); %Lymphocytes 22.4 % (21.0-51.0); %Monocytes 7.7 % (0.0-10.0); %Neutrophils 64.1 % (42.0-75.0); Hemoglobin 10.3 g/dL (14.0-18.0); Mean Corpuscular HGB CONC 33.9 g/dL (32.0-36.0); Mean Corpuscular Volume 82.6 fl (80.0-94.0); Mean Platelet Volume 6.5 fL (7.4-10.4); Platelet Count 297 thou/uL (130-400); RBC Distribution Width 14.4 % (11.5-14.5); Red Blood Cell (RBC) Count 3.69 mill/uL (4.70-6.10)
== END 2016-10-01 14:39 | disposition home or self-care (01) ==
LOC: MADERS 09:44
DX: K92.2 Gastrointestinal hemorrhage, unspecified (principal); E11.9 Type 2 diabetes mellitus without complications; E78.00 Pure hypercholesterolemia, unspecified; J44.9 Chronic obstructive pulmonary disease, unspecified
CPT/HCPCS: 36415; 80053; 82274; 85025; 85610; 85730; 86850; 86900; 86901; 96374; C9113; J7050

== ENCOUNTER 2016-10-22 07:17 | Outpatient (CLI) | payer MEDICARE, MEDICAID ==
[2016-10-22 08:20] LABS: ALT (SGPT) 14 U/L (8-55); AST (SGOT) 13 U/L (5-34); Albumin 4.2 g/dL (3.4-4.8); Alkaline Phosphatase 60 U/L (40-150); Anion Gap 16 mmol/L (10-20); BUN (Urea Nitrogen) 27 mg/dL (8.4-25.7); Bilirubin, Total Less than 0.3 mg/dL (0.2-1.2); Calc. Creatinine Clearance 0 mL/min (70-130); Calcium 9.5 mg/dL (7.8-10.44); Carbon Dioxide 26 mmol/L (23-31); Cardiac Risk 4.3 (Less than 4.5); Chloride 102 mmol/L (98-107); Cholesterol 159 mg/dl (< 200 Desired); Estimated GFR-MDRD 51; Globulin 3.5 g/dL (2.4-3.5); Glucose 145 mg/dL (83-110); HDL Cholesterol 37 mg/dL (>60 Neg Risk); LDL Cholesterol, Calculated 86 mg/dL; Protein, Total 7.7 g/dL (5.8-8.1); Sodium 140 mmol/L (136-145); Triglycerides 181 mg/dL (Less than 150)
[2016-10-22 08:28] LABS: Hemoglobin A1c 6.1 % (4.0-6.0)
[2016-10-22 08:31] LABS: #Basophils 0.1 thou/uL (0.0-0.2); #Eosinphils 0.8 thou/uL (0.0-0.7); #Lymphocytes 1.4 thou/uL (1.20-3.40); #Monocytes 0.6 thou/uL (0.11-0.59); #Neutrophils 5.3 thou/uL (1.40-6.50); %Eosinophils 9.8 % (0.0-10.0); %Lymphocytes 17.2 % (21.0-51.0); %Monocytes 7.3 % (0.0-10.0); %Neutrophils 64.7 % (42.0-75.0); Hemoglobin 11.5 g/dL (14.0-18.0); Mean Corpuscular HGB CONC 31.8 g/dL (32.0-36.0); Mean Corpuscular Hemoglobin 26.9 pg (27.0-31.0); Mean Corpuscular Volume 84.7 fl (80.0-94.0); Mean Platelet Volume 6.7 fL (7.4-10.4); Platelet Count 335 thou/uL (130-400); RBC Distribution Width 14.9 % (11.5-14.5); Red Blood Cell (RBC) Count 4.27 mill/uL (4.70-6.10); White Blood Cell (WBC) Count 8.1 thou/uL (4.8-10.8)
[2016-10-22 08:37] LABS: Free T4 (Free Thyroxine) 0.87 ng/dL (0.70-1.48); Thyroid Stimulating Hormone 2.2508 uIU/mL (0.35-4.94)
[2016-10-22 17:20] LABS: Iron 92 ug/dL (65-175)
[2016-10-22 17:41] LABS: Ferritin 32.76 ng/mL (22-322)
[2016-10-22 18:43] LABS: Creatinine, Urine 101.26 mg/dL (63-166); Microalbumin Urine Less than 1.0 mg/dL (0.5-50.0); Microalbumin/Creat Ratio 9.9 mg/g (Less than 30)
== END 2016-10-22 07:18 | disposition home or self-care (01) ==
LOC: MADLABBHPM 07:17
PROVIDERS: ATTEND Internal Medicine Gastroenterology
DX: E78.2 Mixed hyperlipidemia (principal); D50.0 Iron deficiency anemia secondary to blood loss (chronic); I10 Essential (primary) hypertension; I65.23 Occlusion and stenosis of bilateral carotid arteries; I70.213 Atherosclerosis of native arteries of extremities with intermittent claudication, bilateral legs; E11.9 Type 2 diabetes mellitus without complications
CPT/HCPCS: 36415; 80053; 80061; 82043; 82728; 83036; 83540; 84439; 84443; 85025

== ENCOUNTER 2017-01-16 06:37 | Outpatient (CLI) | payer MEDICARE, MEDICAID ==
[2017-01-16 07:13] LABS: #Basophils 0.1 thou/uL (0.0-0.2); #Eosinphils 0.5 thou/uL (0.0-0.7); #Lymphocytes 1.5 thou/uL (1.20-3.40); #Monocytes 0.6 thou/uL (0.11-0.59); #Neutrophils 4.2 thou/uL (1.40-6.50); %Basophils 0.8 % (0.0-1.0); %Eosinophils 6.8 % (0.0-10.0); %Lymphocytes 21.5 % (21.0-51.0); %Monocytes 9.5 % (0.0-10.0); %Neutrophils 61.4 % (42.0-75.0); Hemoglobin 13.1 g/dL (14.0-18.0); Mean Corpuscular HGB CONC 33.1 g/dL (32.0-36.0); Mean Corpuscular Hemoglobin 27.1 pg (27.0-31.0); Mean Corpuscular Volume 81.8 fl (80.0-94.0); Mean Platelet Volume 5.8 fL (7.4-10.4); Platelet Count 361 thou/uL (130-400); RBC Distribution Width 13.8 % (11.5-14.5); Red Blood Cell (RBC) Count 4.84 mill/uL (4.70-6.10); White Blood Cell (WBC) Count 6.8 thou/uL (4.8-10.8)
[2017-01-16 07:15] LABS: Hemoglobin A1c 7.5 % (4.0-6.0)
[2017-01-16 07:17] LABS: ALT (SGPT) 21 U/L (8-55); AST (SGOT) 14 U/L (5-34); Alkaline Phosphatase 78 U/L (40-150); Anion Gap 16 mmol/L (10-20); BUN (Urea Nitrogen) 20 mg/dL (8.4-25.7); Bilirubin, Total Less than 0.3 mg/dL (0.2-1.2); Calc. Creatinine Clearance 0 mL/min (70-130); Calcium 9.4 mg/dL (7.8-10.44); Carbon Dioxide 25 mmol/L (23-31); Chloride 100 mmol/L (98-107); Estimated GFR-MDRD 60; Globulin 3.8 g/dL (2.4-3.5); Glucose 170 mg/dL (83-110); Protein, Total 7.8 g/dL (5.8-8.1); Sodium 137 mmol/L (136-145)
[2017-01-16 11:33] LABS: Microalbumin Urine Less than 1.0 mg/dL (0.5-50.0); Microalbumin/Creat Ratio 7.1 mg/g (Less than 30)
== END 2017-01-16 06:38 | disposition home or self-care (01) ==
LOC: MADLABBHPM 06:37
PROVIDERS: ATTEND Family Medicine
DX: E11.9 Type 2 diabetes mellitus without complications (principal); D64.9 Anemia, unspecified
CPT/HCPCS: 36415; 80053; 82043; 82728; 83036; 83540; 85025

== ENCOUNTER 2018-05-03 10:52 | Emergency (ER) | payer MEDICARE, MEDICAID ==
--- NOTE | 2018-05-03 14:20 | RAD ---
CHEST 2 VIEWS: HISTORY: Pain. Cough. COMPARISON: 05/07/2013. FINDINGS: Atherosclerosis of the aorta. Normal cardiac silhouette. The pulmonary vessels and hilum are normal . Costophrenic angles are clear. No masses or consolidation. No pneumothorax or osseous abnormalit ies. IMPRESSION: Atherosclerosis. No acute cardiopulmonary process. POS: [facility]
== END 2018-05-03 12:14 | disposition home or self-care (01) ==
LOC: MADERS 10:52
DX: J44.1 Chronic obstructive pulmonary disease with (acute) exacerbation (principal); J18.9 Pneumonia, unspecified organism; E11.9 Type 2 diabetes mellitus without complications; E78.00 Pure hypercholesterolemia, unspecified; F17.220 Nicotine dependence, chewing tobacco, uncomplicated
CPT/HCPCS: 71046; 87804

== ENCOUNTER 2020-06-29 10:40 | Outpatient (CLI) | payer MEDICARE, OTHER | END 2020-06-29 10:41 | disposition home or self-care (01) | LOC: MADRAD 10:40 | PROVIDERS: ATTEND Family Medicine | DX: R31.9 Hematuria, unspecified (principal); N20.0 Calculus of kidney; N28.9 Disorder of kidney and ureter, unspecified; N28.1 Cyst of kidney, acquired; K80.20 Calculus of gallbladder without cholecystitis without obstruction; N40.0 Benign prostatic hyperplasia without lower urinary tract symptoms | CPT/HCPCS: 74176 ==

== ENCOUNTER 2020-10-04 15:53 | Outpatient (CLI) | payer MEDICARE, OTHER ==
[~2020-10-04 15:53] MED LIST changes: +Iopamidol 370 76% 100 ML VIAL ONE; -Sodium Chloride 0.9% 500 ML BAG ONE
== END 2020-10-04 15:54 | disposition home or self-care (01) ==
LOC: MADLAB 15:53
PROVIDERS: ATTEND Urology
DX: R31.0 Gross hematuria (principal); N20.0 Calculus of kidney; N28.1 Cyst of kidney, acquired; N40.0 Benign prostatic hyperplasia without lower urinary tract symptoms; N42.89 Other specified disorders of prostate; I70.0 Atherosclerosis of aorta; K80.20 Calculus of gallbladder without cholecystitis without obstruction
CPT/HCPCS: 36415; 74178; 82565; Q9967

== ENCOUNTER 2021-11-10 15:01 | Emergency (ER) | payer MEDICARE, MEDICAID ==
[2021-11-10 15:33] LABS: Bilirubin Negative (Negative); Blood, Urine Large (Negative); Clarity Cloudy (Clear); Glucose, Urine (Dipstick) Negative (Negative); Ketone, Urine Negative (Negative); Leukocyte Negative (Negative); Nitrite Negative (Negative); Protein, Urine (Dipstick) 100 mg/dL (Neg-Trace); Urobilinogen 0.2 mg/dL (Less than 2)
[2021-11-10 15:40] LABS: Bacteria/HPF 1+ HPF (None Seen); RBC/HPF Greater than 50 HPF (0-3); Squamous Epithelial 0-3 HPF (0-3); WBC/HPF 0-3 HPF (0-3)
[2021-11-10] MEDS ORDERED: Sulfameth/Trimethoprim DS 800-160mg TAB ONE (16:05)
== END 2021-11-10 16:15 | disposition home or self-care (01) ==
LOC: MADERS 15:01
DX: N30.01 Acute cystitis with hematuria (principal); N41.0 Acute prostatitis; E11.9 Type 2 diabetes mellitus without complications; E78.00 Pure hypercholesterolemia, unspecified; J44.9 Chronic obstructive pulmonary disease, unspecified; F17.220 Nicotine dependence, chewing tobacco, uncomplicated; Z79.84 Long term (current) use of oral hypoglycemic drugs; Z79.82 Long term (current) use of aspirin; Z79.899 Other long term (current) drug therapy
CPT/HCPCS: 81003; 81015; 87086; 99283

== ENCOUNTER 2022-05-02 15:19 | Outpatient (CLI) | payer OTHER, MEDICAID | END 2022-05-02 15:20 | disposition home or self-care (01) | LOC: MADRAD 15:19 | PROVIDERS: ATTEND Internal Medicine | DX: I10 Essential (primary) hypertension (principal) | CPT/HCPCS: 71046 ==

== ENCOUNTER 2022-12-18 11:01 | Emergency (ER) | payer MEDICAID, MEDICARE, OTHER ==
[2022-12-18 11:51] LABS: #Basophils 0.1 thou/uL (0.0-0.2); #Eosinphils 0.2 thou/uL (0.0-0.7); #Lymphocytes 1.5 thou/uL (1.20-3.40); #Monocytes 0.5 thou/uL (0.11-0.59); %Basophils 0.6 % (0.0-1.0); %Eosinophils 1.9 % (0.0-10.0); %Monocytes 5.8 % (0.0-10.0); %Neutrophils 73.7 % (42.0-75.0); Hematocrit 29.1 % (42.0-52.0); Hemoglobin 9.3 g/dL (14.0-18.0); Mean Corpuscular HGB CONC 31.9 g/dL (32.0-36.0); Mean Corpuscular Hemoglobin 25.1 pg (27.0-31.0); Mean Corpuscular Volume 78.7 fl (78.0-98.0); Mean Platelet Volume 7.1 fL (7.4-10.4); Platelet Count 271 10x3/uL (130-400); White Blood Cell (WBC) Count 8.1 10x3/uL (4.8-10.8)
[2022-12-18 11:56] LABS: Prothrombin Time 13.4 sec (12.0-14.7)
[2022-12-18 11:57] LABS: PTT 25.9 sec (22.9-36.1)
[2022-12-18 12:05] LABS: ALT (SGPT) 11 U/L (8-55); AST (SGOT) 11 U/L (5-34); Albumin 3.9 g/dL (3.4-4.8); Alkaline Phosphatase 45 U/L (40-110); Anion Gap 15 mmol/L (10-20); BUN (Urea Nitrogen) 24 mg/dL (8.4-25.7); Bilirubin, Total 0.3 mg/dL (0.2-1.2); Calc. Creatinine Clearance 0 mL/min (70-130); Calcium 9.1 mg/dL (7.8-10.44); Carbon Dioxide 23 mmol/L (23-31); Chloride 104 mmol/L (98-107); Estimated GFR 42; Globulin 3.1 g/dL (2.4-3.5); Glucose 169 mg/dL (83-110); Potassium 3.9 mmol/L (3.5-5.1); Sodium 138 mmol/L (136-145)
[2022-12-18] MEDS ORDERED: Pantoprazole 40 MG VIAL ONE (12:22)
== END 2022-12-18 12:53 | disposition home or self-care (01) ==
LOC: MADERS 11:01
DX: K92.2 Gastrointestinal hemorrhage, unspecified (principal); I10 Essential (primary) hypertension; E11.9 Type 2 diabetes mellitus without complications; J44.9 Chronic obstructive pulmonary disease, unspecified; F17.220 Nicotine dependence, chewing tobacco, uncomplicated; E78.00 Pure hypercholesterolemia, unspecified; Z79.82 Long term (current) use of aspirin; Z79.84 Long term (current) use of oral hypoglycemic drugs; Z79.899 Other long term (current) drug therapy
CPT/HCPCS: 80053; 85025; 85610; 85730; 96374; C9113